=== PATIENT | male | born 1970 | race Two or more races ===

== ENCOUNTER 2021-08-09 16:07 | Emergency (ER) | payer OTHER ==
[~2021-08-09] VITALS: Ht 165.1 cm; Wt 77.1 kg
[2021-08-09] MEDS ORDERED: ONDANSETRON HCL/PF 4 MG/2 ML VIAL ONE (17:04)
[2021-08-09] MEDS ORDERED: MORPHINE SULFATE INJ 4 MG/ML DISP.SYRIN ONE ×2 (17:05→18:24)
[2021-08-09] MEDS: ONDANSETRON HCL/PF 4 MG/2 ML VIAL IVP ONE (17:10)
[2021-08-09] MEDS: MORPHINE SULFATE INJ 2 MG/ML DISP.SYRIN IV ONE ×2 (17:10→18:29)
[2021-08-09 17:33] LABS: BASOPHILS # (AUTO) 0.1 K/uL (0.0-0.2); BASOPHILS % (AUTO) 0.5 % (0.0-2.0); EOSINOPHILS % (AUTO) 1.5 % (0.0-6.0); HEMATOCRIT 42 % (39-51); HEMOGLOBIN 14.1 g/dL (13.5-17.5); LYMPHOCYTES # (AUTO) 1.8 K/uL (0.8-4.8); LYMPHOCYTES % (AUTO) 18.1 % (20.0-44.0); MEAN CORPUSCULAR HGB CONC 34 g/dl (31.0-36.0); MEAN CORPUSCULAR VOLUME 90 fL (80-96); MONOCYTES # (AUTO) 0.7 K/uL (0.1-1.30); MONOCYTES % (AUTO) 7.2 % (2.0-12.0); NEUTROPHILS # (AUTO) 7.1 K/uL (1.8-8.9); NEUTROPHILS % (AUTO) 72.7 % (43.0-81.0); PLATELET COUNT (AUTO) 242 K/uL (150-450); RED BLOOD CELL COUNT(AUTO) 4.67 MIL/uL (4.5-6.0); WHITE BLOOD COUNT (AUTO) 9.8 K/uL (4.3-11.0)
[2021-08-09 17:41] LABS: CALCIUM, SERUM 9.2 mg/dL (8.5-10.1); CARBON DIOXIDE 26 mmol/L (21-32); CHLORIDE 104 mmol/L (98-107); CREATININE 1.1 mg/dL (0.6-1.3); GLUCOSE 93 mg/dL (74-106); SODIUM SERUM 138 mmol/L (136-145); UREA NITROGEN, BLOOD 20 mg/dL (7-18)
--- NOTE | 2021-08-09 19:21 | NUR ---
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 Nitro given COUNTERINTELLIGENCE ANALYST without relief. Pt awake and alert x4 on inspector canned food reconditioning and pulse ox v/s wnl.
--- NOTE | 2021-08-09 19:24 | NUR ---
COVID SWAB COLLECTED SENT TO LAB
--- NOTE | 2021-08-09 20:52 | NUR ---
Patient does not wish to proceed with medical care recommended by Dr. Lopez. Patient given information related to possible complications, up to and including , which could occur as a result of leaving the hospital at this time. Patient verbalizes understanding of risks involved due to leaving against medical advice. Patient has signed AMA form.
[2021-08-09 21:13] VITALS: BP 133/96
== END 2021-08-09 20:55 | disposition left against medical advice (07) ==
LOC: ER 16:12
DX: R07.89 Other chest pain (principal); I25.10 Atherosclerotic heart disease of native coronary artery without angina pectoris; I10 Essential (primary) hypertension
CPT/HCPCS: 36415; 71045; 80048; 84484 ×2; 85025; 93005 ×3; 96374; 96375; 96376; 99285; J2270 ×2; J2405

== ENCOUNTER 2022-07-14 16:08 | Inpatient (IN) | payer OTHER ==
[~2022-07-14] VITALS: Ht 167.6 cm; Wt 67.1 kg
--- NOTE | 2022-07-14 16:24 | NUR ---
PT IN BED 12, DYSPNEA AT REST C/O CHEST PAIN 9/10 HISTORY OF HEART ATTACHED AND 2 STENT PLACEMENTS. CONNECTED TO BEDISDE MONITOR SIDE RAILS UP BED LOCKED INLOWEST PSOTION.
[2022-07-14 16:26] LABS: BASOPHILS # (AUTO) 0.1 K/uL (0.0-0.2); BASOPHILS % (AUTO) 0.5 % (0.0-2.0); EOSINOPHILS % (AUTO) 0.5 % (0.0-6.0); HEMATOCRIT 45 % (39-51); HEMOGLOBIN 15.1 g/dL (13.5-17.5); LYMPHOCYTES # (AUTO) 2.1 K/uL (0.8-4.8); MEAN CORPUSCULAR HGB CONC 34 g/dl (31.0-36.0); MEAN CORPUSCULAR VOLUME 89 fL (80-96); MONOCYTES # (AUTO) 0.5 K/uL (0.1-1.30); MONOCYTES % (AUTO) 4.2 % (2.0-12.0); NEUTROPHILS # (AUTO) 9.1 K/uL (1.8-8.9); NEUTROPHILS % (AUTO) 76.8 % (43.0-81.0); PLATELET COUNT (AUTO) 253 K/uL (150-450); RED BLOOD CELL COUNT(AUTO) 5.04 MIL/uL (4.5-6.0); WHITE BLOOD COUNT (AUTO) 11.9 K/uL (4.3-11.0)
--- NOTE | 2022-07-14 16:26 | NUR ---
HEALTH INSURANCE SALES AGENT AT [facility] FOR EKG.
--- NOTE | 2022-07-14 16:26 | NUR ---
20G RAC STARTED BLOOD DRAWN.
--- NOTE | 2022-07-14 16:26 | NUR ---
MD GRIJALVA DONE.
[2022-07-14] MEDS ORDERED: NITROGLYCERIN 0.4 MG/TAB BOTTLE ONE (17:10)
[2022-07-14] MEDS ORDERED: HYDROCODONE/APAP 5/325MG TABLET ONE (17:13)
[2022-07-14 17:16] LABS: CALCIUM, SERUM 9.9 mg/dL (8.5-10.1); CARBON DIOXIDE 24 mmol/L (21-32); CHLORIDE 101 mmol/L (98-107); GLUCOSE 116 mg/dL (74-106); POTASSIUM 3.3 mmol/L (3.5-5.1); SODIUM SERUM 136 mmol/L (136-145); UREA NITROGEN, BLOOD 14 mg/dL (7-18)
[2022-07-14 17:27] LABS: ALANINE AMINOTRANSFERASE 27 U/L (12-78); ALKALINE PHOSPHATASE 81 U/L (46-116); ASPARTATE AMINOTRANSFERASE 21 U/L (15-37); BILIRUBIN,DIRECT 0.2 mg/dL (0.0-0.2); BILIRUBIN,TOTAL 0.7 mg/dL (0.2-1.0); TOTAL PROTEIN, SERUM 8.1 g/dL (6.4-8.2)
[2022-07-14] MEDS ORDERED: HYDROCODONE/APAP 5/325MG TABLET PO ONE (17:30)
[2022-07-14] MEDS ORDERED: NITROGLYCERIN 0.4 MG/TAB BOTTLE SL ONE (17:30)
[2022-07-14] MEDS ORDERED: MORPHINE SULFATE INJ 2 MG/ML DISP.SYRIN IV ONE (19:30)
[2022-07-14 19:46] LABS: EOSINOPHILS % (MANUAL) 1 % (0-4); LYMPHOCYTES % (MANUAL) 30 % (16-48); MONOCYTES % (MANUAL) 6 % (0-11.0); NEUTROPHILS % (MANUAL) 63 (42-76)
[2022-07-14] MEDS ORDERED: MORPHINE SULFATE INJ 2 MG/ML DISP.SYRIN ONE (20:00)
[2022-07-14] MEDS ORDERED: ONDANSETRON HCL/PF 4 MG/2 ML VIAL IVP PRN (20:30)
[2022-07-14] MEDS ORDERED: ACETAMINOPHEN 325 MG TABLET PO PRN (20:30)
[2022-07-14] MEDS ORDERED: ENOXAPARIN SODIUM 40 MG/0.4 ML DISP.SYRIN SQ SCH (21:00)
--- NOTE | 2022-07-14 21:33 | NUR ---
HANDOFF REPORT GIVEN TO WILIAM HOOD
[2022-07-14] MEDS ORDERED: POTASSIUM CHLORIDE 20 MEQ TAB.PRT.SR PO ONE (21:40)
[2022-07-14] MEDS ORDERED: ATORVASTATIN 10 MG TABLET PO SCH (22:00)
[2022-07-14] MEDS: MORPHINE SULFATE INJ 2 MG/ML DISP.SYRIN IV PRN (22:14)
--- NOTE | 2022-07-14 22:14 | NUR ---
RN Notes Administered morphine for pain per MD order. VS WNL.
[2022-07-14] MEDS ORDERED: TEMAZEPAM 15 MG CAPSULE PO PRN (23:00)
[2022-07-14] MEDS ORDERED: TICA90TA PO (23:18)
[2022-07-14] MEDS ORDERED: NITR0.4T48 SL (23:18)
[2022-07-14] MEDS ORDERED: AMLO-212 PO (23:18)
[2022-07-14] MEDS ORDERED: ISOS60TA72 PO (23:18)
[2022-07-14] MEDS ORDERED: PANT40TA49 PO (23:18)
[2022-07-14] MEDS ORDERED: VENL37.55 PO (23:18)
[2022-07-14] MEDS ORDERED: METO-358 PO (23:18)
[2022-07-14] MEDS ORDERED: ASPI-1169 PO (23:18)
[2022-07-14] MEDS ORDERED: LOSA100T3 PO (23:18)
[2022-07-14] MEDS ORDERED: ROSU40TA PO (23:18)
[2022-07-15 00:23] VITALS: BP 115/78
--- NOTE | 2022-07-15 01:30 | NUR ---
Admission Notes Pt arrived via gurney accompanied by RN and EMT @ 2200. Pt able to ambulate to bed on own. AOx4, able to make needs known. On RA and tolerating well. No SOB noted. No s/sx of respiratory distress noted. Tele monitor detects SR. IV access in Left Hand #20G and RAC #20G. IV is intact, patent, and flushing well. Safety precautions in place: bed in lowest, locked position, siderails upX2, and brakes on. Table and call light within reach. All needs met at this time.
[2022-07-15 04:53] VITALS: BP 127/86
[2022-07-15] MEDS: MORPHINE SULFATE INJ 2 MG/ML DISP.SYRIN IV PRN ×3 (05:08→13:11)
--- NOTE | 2022-07-15 05:09 | NUR ---
RN Notes Administered morphine per MD order for pain. VS WNL.
[2022-07-15 06:37] LABS: BASOPHILS # (AUTO) 0.1 K/uL (0.0-0.2); EOSINOPHILS % (AUTO) 2.4 % (0.0-6.0); HEMATOCRIT 41 % (39-51); HEMOGLOBIN 13.8 g/dL (13.5-17.5); LYMPHOCYTES # (AUTO) 2.1 K/uL (0.8-4.8); LYMPHOCYTES % (AUTO) 24.4 % (20.0-44.0); MEAN CORPUSCULAR HGB CONC 34 g/dl (31.0-36.0); MEAN CORPUSCULAR VOLUME 91 fL (80-96); MONOCYTES # (AUTO) 0.6 K/uL (0.1-1.30); MONOCYTES % (AUTO) 6.5 % (2.0-12.0); NEUTROPHILS # (AUTO) 5.8 K/uL (1.8-8.9); NEUTROPHILS % (AUTO) 65.7 % (43.0-81.0); PLATELET COUNT (AUTO) 209 K/uL (150-450); RED BLOOD CELL COUNT(AUTO) 4.52 MIL/uL (4.5-6.0); WHITE BLOOD COUNT (AUTO) 8.8 K/uL (4.3-11.0)
--- NOTE | 2022-07-15 06:42 | NUR ---
RN Closing Notes Pt in bed, asleep, awakens to verbal stimuli. AOx4, able to make needs known. On RA and tolerating well. No SOB noted. No s/sx of respiratory distress noted. Tele monitor detects SR. IV access in Left Hand #20G and RAC #20G. IV is intact, patent, and flushing well. All orders carried out. All needs met. Pt kept clean and dry. Safety precautions in place: bed in lowest, locked position, siderails upX2, and brakes on. Table and call light within reach. Will endorse to oncoming shift for CARLO.
[2022-07-15 07:00] LABS: CALCIUM, SERUM 9.5 mg/dL (8.5-10.1); CREATININE 0.8 mg/dL (0.6-1.3); MAGNESIUM 2.1 mg/dL (1.8-2.4); POTASSIUM 3.9 mmol/L (3.5-5.1)
--- NOTE | 2022-07-15 07:00 | NUR ---
EMERGENCY ROOM CLERK OPENING NOTES: RECEIVED PT IN BED AWAKE, ALERT AND ORIENTED X 4.NO SOB OR CARDIAC DISTRESS NOTED. PT COMPLAINING OF PAIN PER RN SHE GAVE MORPHINE 2 HRS AGO (0508AM). ON FISHING LINE WINDING MACHINE OPERATOR WITH CURRENT READING: SINUS RHYTHM @72BPM. IV ACCESS ON LEFT HAND GAUGE 20.RAC GAUGE 20 PATENT INTACT AND SALINE LOCKED. SAFETY MEASURES MAINTAINED: BED LOCKED AND IN LOWEST POSITION, SIDE RAILS UP X2. CALL LIGHT IN EASY REACH, WILL MONITOR PT ACCORDINGLY.
[2022-07-15 08:00] VITALS: BP 138/91
[2022-07-15] MEDS ORDERED: ASPIRIN 81 MG TAB.CHEW PO SCH (09:00)
[2022-07-15 12:00] VITALS: BP_SYST 118; BP_SYST 138; BP_DIAS 79; BP_DIAS 91
[2022-07-15] MEDS ORDERED: ALPR1TAB7 PO (13:04)
[2022-07-15 16:00] VITALS: BP 139/73
--- NOTE | 2022-07-15 18:06 | NUR ---
FUEL ATTENDANT NOTES: PATIENT DC HOME TODAY WITH FAMILY,PT AA/OX4 AND ABLE TO MAKE NEEDS KNOWN. NO SOB OR CARDIAC DISTRESS NOTED. DISCHARGE INSTRUCTIONS AND PACKET GIVEN TO PT AND VERBALIZED UNDERSTANDING. BELONGINGS TAKEN WITH THE PATIENT. REMINDED PT TO FOLLOW UP WITH PCP AND HARM REDUCTION WORKER. REMOVED TELE MONITOR AND HANDED TO [facility]IM IRONER HAND RAMONA. HOME MEDS GIVEN BACK TO PATIENT.REMOVED IV ACCESS AND IDENTIFICATION BAND. PT LEFT THE UNIT AMBULATORY AND STABLE.
== END 2022-07-15 18:05 | disposition home or self-care (01) | DRG 203 ==
LOC: ER 16:19 → TELE 21:28
PROVIDERS: ADMIT Nurse Practitioner Acute Care; ATTEND Internal Medicine
DX: M94.0 Chondrocostal junction syndrome [Tietze] (principal); D72.829 Elevated white blood cell count, unspecified; I10 Essential (primary) hypertension; I25.2 Old myocardial infarction; I25.10 Atherosclerotic heart disease of native coronary artery without angina pectoris; Z95.5 Presence of coronary angioplasty implant and graft; Z20.822 Contact with and (suspected) exposure to COVID-19; F17.210 Nicotine dependence, cigarettes, uncomplicated
CPT/HCPCS: 36415; 71045-TC; 80048-TC; 80061-TC; 80076-TC; 83735-TC; 84100-TC; 84484-TC; 85025-TC; 85378-TC; 87081-TC; 93307-TC; C9803; G0378; J1650; J2270